=== PATIENT | male | born 1955 ===

== ENCOUNTER 2022-03-12 14:04 | Emergency (ER) | payer MEDICAID, MEDICARE ==
[2022-03-12 15:09] LABS: ANION GAP 9.5 meq/L (7-15); CHLORIDE,CL 103 mmol/L (98-107); SODIUM,NA 143 mmol/L (136-145)
[2022-03-12 15:13] LABS: ESTIMATED GFR 46 mL/min (>=60)
== END 2022-03-12 17:25 | disposition home or self-care (01) ==
LOC: LL.ED 14:04
DX: M54.2 Cervicalgia (principal); I10 Essential (primary) hypertension; Z72.0 Tobacco use; W19.XXXA Unspecified fall, initial encounter
CPT/HCPCS: 36415; 70450; 72125; 80053; 80307; 82140; 83735; 85025; 99284